=== PATIENT | female | born 1940 | race Caucasian/White ===

== ENCOUNTER → 2017-02-11 | Outpatient (CLI) | payer OTHER | LOC: RAD 01:29 | DX: Z12.31 Encounter for screening mammogram for malignant neoplasm of breast (principal) ==

== ENCOUNTER → 2017-06-04 | Outpatient (CLI) | payer OTHER | LOC: RAD 15:58 | DX: M47.896 Other spondylosis, lumbar region (principal) ==

== ENCOUNTER → 2018-02-16 | Outpatient (CLI) | payer OTHER | LOC: RAD 01:57 | DX: Z12.31 Encounter for screening mammogram for malignant neoplasm of breast (principal); I10 Essential (primary) hypertension ==

== ENCOUNTER → 2018-09-09 | Outpatient (CLI) | payer OTHER | LOC: RAD 14:40 | DX: R05 Cough (principal) ==

== ENCOUNTER → 2019-03-10 | Outpatient (CLI) | payer OTHER | LOC: NUC 06:20 | DX: Z12.31 Encounter for screening mammogram for malignant neoplasm of breast (principal); M85.89 Other specified disorders of bone density and structure, multiple sites; Z78.0 Asymptomatic menopausal state ==

== ENCOUNTER → 2019-04-18 | Outpatient (CLI) | payer OTHER | LOC: CAT 13:46 | DX: Z13.6 Encounter for screening for cardiovascular disorders (principal); E78.00 Pure hypercholesterolemia, unspecified; I25.10 Atherosclerotic heart disease of native coronary artery without angina pectoris ==

== ENCOUNTER 2020-01-04 12:55 | Inpatient (IN) | payer OTHER ==
[~2020-01-04] VITALS: Ht 152.4 cm; Wt 78.0 kg
[2020-01-04 12:55] VITALS: BP 141/64
[2020-01-04 13:36] LABS: ABSOLUTE NEUTROPHILS 6.2 thou/uL (1.4-8.2); BASOPHILS 0.6 % (0.0-2.0); EOSINOPHILS 1.2 % (0.0-3.0); HEMATOCRIT 41.8 % (37.0-47.0); HEMOGLOBIN 14.5 gm/dL (12.0-15.0); LYMPHOCYTES 12.5 % (24.0-44.0); MCH 30.6 pg (26.0-34.0); MCHC 34.6 g/dL (28.0-37.0); MCV 88.4 fL (80.0-100.0); MONOCYTES 8.2 % (1.0-8.0); PLATELET COUNT 241 thou/uL (150-400); POLYS 77.5 % (36.0-66.0); RBC 4.73 mil/uL (4.20-5.00)
[2020-01-04 13:39] LABS: ANION GAP 7 mmol/L (7-16); BUN 11 mg/dL (7-18); CALCIUM 9.1 mg/dL (8.5-10.1); CHLORIDE 94 mmol/L (98-107); CO2 31 mmol/L (21-32); CREATININE 0.9 mg/dL (0.6-1.0); GLUCOSE 114 mg/dL (74-106); POTASSIUM 3.7 mmol/L (3.5-5.1); SODIUM 132 mmol/L (136-145)
[2020-01-04 13:49] LABS: ALBUMIN 3.9 g/dL (3.4-5.0); SGOT 51 U/L (15-37); SGPT 37 U/L (30-65); TOTAL BILIRUBIN 0.9 mg/dL (0.2-1.0); TOTAL PROTEIN 7.9 g/dL (6.4-8.2); TROPONIN-I <0.06 ng/mL (<0.06)
[2020-01-04] MEDS ORDERED: PRAVASTATIN SOD40 MG PO (14:36)
[2020-01-04] MEDS ORDERED: TRIAMTERENE/HCT1 CA1 PO (14:36)
[2020-01-04] MEDS ORDERED: DERMACINRX5000 UNIT PO (14:37)
[2020-01-04] MEDS ORDERED: VITAMIN C500 M1 PO (14:37)
[2020-01-04] MEDS ORDERED: CELEXA 20 MG TA20 MG PO (14:37)
[2020-01-04] MEDS ORDERED: PREVACID30 MG PO (14:38)
[2020-01-04] MEDS ORDERED: OXYBUTYNIN 5 MG5 M2 PO (14:38)
[2020-01-04 16:29] VITALS: BP 125/68
[2020-01-04 16:43] VITALS: BP 137/72
[2020-01-04 17:01] VITALS: BP 142/69
--- NOTE | 2020-01-04 18:40 | NUR ---
PATIENT ADMITTED FROM ER WITH RIB FRACTURE, ATELECTASIS, AND PAIN. PATIENT ARRIVED ON THE UNIT AT 1700. PATIENT C/O PAIN WITH LEFT RIB AREA, MORPHINE 2 MG IV GIVEN DURING ADMISSION. RIGHT AC IV WITH NS AT 125CC/HR. ADMISSION PACKET GIVEN. VISITOR ADDED IN THE SYSTEM. WILL REPORT TO CHRISTINE/LEW. OZZIE/LEW ASSISTED WITH THE ADMISSION.
[2020-01-04 19:25] VITALS: BP 137/56
--- NOTE | 2020-01-05 07:42 | EKG ---
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 : 1940 Requested By: Dickson Leahy Order Number: [id number] MD: Herb Austin Measurements Intervals [place] Rate: 68 P: 32 [place]: 208 QRS: 36 QRSD: 101 T: 36 QT: 417 QTc: 444 Interpretive Statements Sinus bradycardia Anterior infarct, old Compared to ECG 06/30/2009 07:36:43 Myocardial infarct finding now present Sinus bradycardia no longer present Electronically Signed On 01-05-2020 7:29:26 CDT by Herb Austin [email or web address] <ELECTRONICALLY SIGNED> By: Herb Austin MD, [facility] 01/05/20 0729 1325 1325 Herb Austin MD, FAC /EPI
[2020-01-05 08:41] VITALS: BP 129/65
--- NOTE | 2020-01-05 13:27 | NUR ---
ASSESSMENT: CM REVIEWED CHART AND SPOKE WITH PATIENT. PT IS ALERT AND ORIENTED X4. PT REPORTS THAT SHE LIVES IN A [place]UP[place] ALONE. PT STATES SHE HAS NO STEPS TO ENTER OR ONCE INSIDE. PT REPORTS SHE IS VERY INDEPENDENT AND HAS NO DME AT HOME. PT REPORTS HAVING GRAB BAR IN THE SHOWER. PT STATES SHE IS VERY ACTIVE AND WALKS ABOUT 6000 STEPS A DAY. CM DISCUSSED ROLE. PT REPORTS SHE HAS NOT HAD HH IN THE PAST NOR BEEN TO A SNF AND DOES NOT FEEL SHE WILL NEED EITHER OF THOSE. PT WAS ADMITTED FOR PAIN CONTROL AFTER A FALL AT HOME OVER FLOWER POTS AND HAVING SOME FRACTURED RIBS. CM WILL CONTINUE TO FOLLOW TO ASSIST NEEDED.
--- NOTE | 2020-01-05 16:45 | NUR ---
Assumed care of pt at 0700. Pt a&ox4. Rib pain controlled with prn pain meds. IV fluids discontinued. Family visited pt in the am. Encouraged use of incentive spirometer. Pt worked with physical therapy. Pt requests medication for heartburn. Doctor notified. Awaiting order. Call light within reach. Pt calls appropriately. Will continue to monitor.
[2020-01-05 18:30] VITALS: BP 120/57
[2020-01-05 19:20] VITALS: BP 137/65
--- NOTE | 2020-01-06 01:15 | NUR ---
ASSESSED AT START OF SHIFT, PT A&OX4 RESTING IN BED, C/O PAIN AT THE RIB AND SHOULDER MANAGED BY PO TRAMADOL AND ICE PACK PLACEMENT. IV INTACT AND SALINE LOCKED. UP WITH ASSIST TO THE BATHROOM. FALL PREC IN PLACE AND CALL LIGHT IN REACH WILL CONT WITH POC TILL EOS.
[2020-01-06 03:20] VITALS: BP 132/64
[2020-01-06 07:25] VITALS: BP 133/53
--- NOTE | 2020-01-06 10:16 | NUR ---
ON-GOING ASSESSMENT: CM REVIEWED CHART AND SPOKE WITH PT. PT REPORTS ATTENDINGS STATED SHE WILL BE HERE A FEW DAYS. PT REPORTS IF HER PAIN IS UNDER CONTROL SHE DOES NOT FEEL SHE WILL HAVE ANY NEEDS AT DISCHARGE. PT DOES NOT FEEL SHE NEEDS HH. PT IS DOING WELL WITH PHYSICAL THERAPY. PLANS ARE FOR PATIENT TO RETURN [facility] WITH NO NEEDS ONCE MEDICALLY STABLE.
[2020-01-06 16:53] VITALS: BP 133/62
[2020-01-06 19:53] VITALS: BP 140/64
--- NOTE | 2020-01-06 19:53 | NUR ---
VSS-AFEBRILE. LUNGS CLEAR-ROOM AIR. SLIGHTLY CONGESTED COUGH. CONTINUES TO C/O LEFT SIDED RIB PAIN-PARTIAL RELIEF NOTED WITH PRESCRIBED PRN PAIN MEDICATIONS. ADEQUATE INTAKE OF MEALS THIS SHIFT, NO DIFFICULTY VOIDING. CALLS APPROPRIATELY FOR ANY NEEDED ASSISTANCE.
--- NOTE | 2020-01-07 02:27 | NUR ---
ASSESSED AT START OF SHIFT PT A&OX4. UP WITH SBA TO THE THE BATHROOM. TRAMADOL GIVEN FOR PAIN X1. PT HAD A SHOWER THIS SHIFT STATED FELT BETTER AFTERWARDS. SLEPT MOST OF THE NIGHT. FALL PREC IN PLACE AND CALL LIGHT IN REACH WILL CONT WITH POC TILL EOS.
[2020-01-07 04:15] VITALS: BP 99/59
[2020-01-07 08:11] VITALS: BP 127/61
[2020-01-07 16:25] VITALS: BP 126/73
--- NOTE | 2020-01-07 16:41 | NUR ---
Assumed care of pt at 0700. Pt a&ox4. Pain controlled with prn pain meds. SBA to the toilet. Encouraged use of IS and ambulation. Fall precautions in place. Will continue to monitor.
[2020-01-07 21:50] VITALS: BP 132/83
--- NOTE | 2020-01-07 23:18 | NUR ---
1900 ASSUMED CARE OF PT AFTER BEDSIDE REPORT, BASELINE ASSESSMENT COMPLETED, PT UP TO BATHROOM WITH STANDBY ASSIST, IS ABLE TO COUGH AND DEEP BREATHE AND CHANGE POSITIONS, PT STATES HER PAIN IS MUCH IMPROVED FROM YESTERDAY AND THAT THE MEDICATION REALLY SEEMS TO BE HELPING, LUNGS CTAB, UNLABORED RESP CONGESTED SLIGHTLY COUGH, WILL CONTINUE TO MONITOR FALL PRECAUTIONS IN PLACE
[2020-01-08 04:26] VITALS: BP 122/70
[2020-01-08 07:20] VITALS: BP 125/70
--- NOTE | 2020-01-08 08:40 | NUR ---
ASSUMED CARE OF PT AT 0130. NO NEEDS VOICED. RESTING COMFORTABLY. CALL LIGHT WITHIN REACH. FREQUENT OBSERVATION.
[2020-01-08] MEDS ORDERED: CYCLOBENZAPRINE5 MG PO (11:37)
[2020-01-08] MEDS ORDERED: MUCINEX DM ER1 EAC1 PO (11:38)
[2020-01-08] MEDS ORDERED: TRAMADOL 50 MG50 MG PO (11:38)
[2020-01-08 11:46] VITALS: BP 125/70
--- NOTE | 2020-01-08 12:27 | NUR ---
PT CARE ASSUMED AT 0700. A&Ox4, FORGETFUL. SCD'S IN PLACE. FALL PRECAUTIONS IN PLACE. PT DISCHARGE EDUCATION GIVEN, PT UNDERSTANDS WITH NO QUESTIONS. SCRIPTS SENT WITH PATIENT. INCENTIVE SPIROMETER MAINTAINED. PT DISCHARGED WITH DAUGHTER AT 1228.
== END 2020-01-08 12:22 | disposition home or self-care (01) | DRG 184 ==
LOC: ER 12:55 → EROBS 15:42 → 4S 15:42
PROVIDERS: Emergency Medicine; ADMIT Surgery; ATTEND Surgery
DX: S22.42XA Multiple fractures of ribs, left side, initial encounter for closed fracture (principal); J98.11 Atelectasis; I10 Essential (primary) hypertension; M54.9 Dorsalgia, unspecified; G89.29 Other chronic pain; K21.9 Gastro-esophageal reflux disease without esophagitis; F32.9 Major depressive disorder, single episode, unspecified; E78.5 Hyperlipidemia, unspecified; G47.00 Insomnia, unspecified; M81.0 Age-related osteoporosis without current pathological fracture; K59.00 Constipation, unspecified; W17.89XA Other fall from one level to another, initial encounter; Z20.828 Contact with and (suspected) exposure to other viral communicable diseases; Y93.89 Activity, other specified; Y92.89 Other specified places as the place of occurrence of the external cause; Z90.710 Acquired absence of both cervix and uterus; Z88.8 Allergy status to other drugs, medicaments and biological substances; Z79.899 Other long term (current) drug therapy; Y99.8 Other external cause status
CPT/HCPCS: 10100

== ENCOUNTER → 2020-04-26 | Outpatient (CLI) | payer OTHER ==
[~2020-04-26] MED LIST: CELEXA 20 MG TA20 MG PO; CYCLOBENZAPRINE5 MG PO; DERMACINRX5000 UNIT PO; MUCINEX DM ER1 EAC1 PO; OXYBUTYNIN 5 MG5 M2 PO; PRAVASTATIN SOD40 MG PO; PREVACID30 MG PO; TRAMADOL 50 MG50 MG PO; TRIAMTERENE/HCT1 CA1 PO; VITAMIN C500 M1 PO
== END ==
LOC: RAD 10:31
PROVIDERS: ATTEND Neuromusculoskeletal Medicine & OMM
DX: Z12.31 Encounter for screening mammogram for malignant neoplasm of breast (principal)

== ENCOUNTER → 2020-05-15 | Outpatient (CLI) | payer OTHER | LOC: SJCVC 13:32 | PROVIDERS: ATTEND Internal Medicine Cardiovascular Disease | DX: R94.31 Abnormal electrocardiogram [ECG] [EKG] (principal); I10 Essential (primary) hypertension; E78.00 Pure hypercholesterolemia, unspecified; I87.2 Venous insufficiency (chronic) (peripheral); R06.00 Dyspnea, unspecified ==

== ENCOUNTER → 2020-05-29 | Outpatient (CLI) | payer OTHER | LOC: SJCVCIMAG 11:24 | PROVIDERS: ATTEND Internal Medicine Cardiovascular Disease | DX: I05.8 Other rheumatic mitral valve diseases (principal); I10 Essential (primary) hypertension; Z79.899 Other long term (current) drug therapy ==

== ENCOUNTER → 2021-04-29 | Outpatient (CLI) | payer OTHER | LOC: BC 12:47 | PROVIDERS: ATTEND Neuromusculoskeletal Medicine & OMM | DX: Z12.31 Encounter for screening mammogram for malignant neoplasm of breast (principal) ==

== ENCOUNTER → 2021-05-30 | Outpatient (CLI) | payer OTHER | LOC: SJCVC 09:48 | PROVIDERS: ATTEND Internal Medicine Cardiovascular Disease | DX: R94.31 Abnormal electrocardiogram [ECG] [EKG] (principal); R93.1 Abnormal findings on diagnostic imaging of heart and coronary circulation; I10 Essential (primary) hypertension; E78.00 Pure hypercholesterolemia, unspecified; I87.2 Venous insufficiency (chronic) (peripheral); I25.2 Old myocardial infarction; Z82.49 Family history of ischemic heart disease and other diseases of the circulatory system; Z72.89 Other problems related to lifestyle; Z79.899 Other long term (current) drug therapy; Z88.5 Allergy status to narcotic agent ==